=== PATIENT | male | born 1975 | race Caucasian/White ===

== ENCOUNTER 2017-12-29 10:40 | Emergency (ER) | payer BC, OTHER ==
[~2017-12-29] VITALS: Ht 185.4 cm; Wt 128.8 kg
[~2017-12-29 10:40] MED LIST: ASPEC81 PO; LRT5 PO; OMEG10007 PO; SIMV20TA2 PO; TAMAFLU
[2017-12-29 10:45] VITALS: TEMP 36.9; Ht 185.4 cm; Wt 128.8 kg
--- NOTE | 2017-12-29 11:31 | EMERGENCY ROOM VISIT NOTE ---
History Report prepared by Carol: Bailey Story Under the Supervision of: Dr. Stanislaw Albrecht M.D. First contact with patient: 10:57 Chief Complaint: FLANK PAIN Stated Complaint: ABDOMINAL PAIN Nursing Triage Summary: pt reports R flank pain X 36 hours [facility] and had + hematuria History of Present Illness The patient is a 42 year old male who presents to the Emergency Room with complaints of waxing and waning right-sided flank pain for the past 36 hours. The patient states that he woke up with this pain yesterday morning. He tried taking ibuprofen but did not have any relief of his symptoms. He went to [facility] today and had a negative x-ray. He had positive hematuria. The patient was sent to the ED for further evaluation of his symptoms. The patient' s pain radiates into his right groin and right testicle. He rates his pain as a 9/10 at the most severe. Certain movements exacerbate his pain while laying still helps to alleviate it. The patient denies any urinary symptoms. He does report that he was recently moving some heavy boxes, but states that is not unusual for him. He denies any recent trauma or injury to his back. The patient has a history of a DVT and is on Xarelto. 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 Review of Systems See HPI for pertinent positives & negatives. A total of 10 systems reviewed and were otherwise negative. Past Medical & Surgical Medical Problems: (1) DVT (deep venous thrombosis) (2) Hyperlipidemia (3) Unspecified asthma Family History FH: heart disease Social History Smoking Status: Never Smoker Occupation Status: employed Current/Historical Medications Scheduled Atorvastatin (Lipitor), 10 MG PO DAILY Rivaroxaban (Xarelto), 20 MG PO QPM Scheduled PRN Albuterol Sulfate (Proair Respiclick), 2 PUFF INH Q4 PRN for SOB/Wheezing Allergies Coded Allergies: Diltiazem (Verified Allergy, Intermediate, SITE REACTION WITH IV PUSH, ) Morphine (Unverified Allergy, Intermediate, RASH, 12/29/17) Calcium Channel Blockers (Unverified Allergy, Unknown, RASH AROUND IV SITE , 12/29/17) Physical Exam Vital Signs Date Time Temp Pulse Resp B/P (MAP) Pulse Ox O2 Delivery O2 Flow Rate FiO2 12/29/17 12:25 73 18 134/67 95 12/29/17 10:45 36.9 75 18 137/80 95 Room Air Physical Exam GENERAL: Patient is in no acute distress. HEENT: No acute trauma, normocephalic atraumatic, mucous membranes moist, no nasal congestion, no scleral icterus. NECK: No stridor, no adenopathy, no meningismus, trachea is midline. LUNGS: Clear to auscultation bilaterally, no wheeze, no rhonchi, breath sounds equal. HEART: Without murmurs gallops or rubs, regular rate and rhythm. ABDOMEN: Soft, nontender, bowel sounds positive, no hernias, no peritonitis. BACK: No midline bony discomfort or step-off, tender in the right lateral lumbar musculature, pain does worsen with movement. EXTREMITIES: No cyanosis or edema, full range of motion of all the joints without pain or difficulty, no signs for acute trauma. NEUROLOGIC: Oriented x 3, no acute motor or sensory deficits, no focal weakness. SKIN: No rash, no jaundice, no diaphoresis. Medical Decision & Procedures ER Provider Diagnostic Interpretation: Radiology results as stated below per my review and radiologist interpretation: ABD/PELVIS WITHOUT FOR STONE CT DOSE: 1939.87 mGy.cm HISTORY: Flank pain EVALUATE FLANK PAIN/HEMATURIA TECHNIQUE: Multiaxial CT images of the abdomen and pelvis were performed without the use of intravenous and oral contrast according to the standard department stone protocol. A dose lowering technique was utilized adhering to the principles of ALARA. COMPARISON STUDY: None. FINDINGS: The lung bases are clear. The unenhanced liver, gallbladder, spleen, pancreas, and adrenal glands are unremarkable. No renal stones or hydronephrosis. No bowel wall thickening or obstruction. The pelvic organs are unremarkable. No suspicious lytic or blastic osseous lesions. IMPRESSION: No renal stones or hydronephrosis. Negative abdomen and pelvis post appendectomy The above report was generated using voice recognition software. It may contain grammatical, syntax or spelling errors. Electronically signed by: Artie Angela M.D. 12/29/2017 11:47 AM Dictated Date/Time: 12/29/2017 11:42 AM Laboratory Results 12/29/17 11:10 12/29/17 11:10 Test 12/29/17 11:10 Red Blood Count 4.88 M/uL (4.7-6.1) Mean Corpuscular Volume 85.0 fL (80-100) Mean Corpuscular Hemoglobin 30.3 pg (25-34) Mean Corpuscular Hemoglobin Concent 35.7 g/dl (32-36) RDW Standard Deviation 37.7 fL (36.4-46.3) RDW Coefficient of Variation 12.3 % (11.5-14.5) Mean Platelet Volume 9.8 fL (7.4-10.4) Prothrombin Time 10.5 SECONDS (9.0-12.0) Prothromb Time International Ratio 1.0 (0.9-1.1) Activated Partial Thromboplast Time 26.8 SECONDS (21.0-31.0) Partial Thromboplastin Ratio 1.0 Urine Color YELLOW Urine Appearance CLEAR (CLEAR) Urine pH 5.0 (4.5-7.5) Urine Specific [place] 1.027 (1.000-1.030) Urine Protein NEG (NEG) Urine Glucose (UA) NEG (NEG) Urine Ketones NEG (NEG) Urine Occult Blood NEG (NEG) Urine Nitrite NEG (NEG) Urine Bilirubin NEG (NEG) Urine Urobilinogen NEG (NEG) Urine Leukocyte Esterase NEG (NEG) Anion Gap 5.0 mmol/L (3-11) Est Creatinine Clear Calc Drug Dose 138.1 ml/min Estimated GFR () 109.8 Estimated GFR (Non- 94.7 BUN/Creatinine Ratio 18.4 (10-20) Calcium Level 9.1 mg/dl (8.5-10.1) Total Bilirubin 1.2 mg/dl (0.2-1) Aspartate Amino Transf (AST/SGOT) 20 U/L (15-37) Alanine Aminotransferase (ALT/SGPT) 51 U/L (12-78) Alkaline Phosphatase 71 U/L (45-117) Total Protein 7.1 gm/dl (6.4-8.2) Albumin 4.3 gm/dl (3.4-5.0) Globulin 2.8 gm/dl (2.5-4.0) Albumin/Globulin Ratio 1.5 (0.9-2) Lipase 205 U/L (73-393) Laboratory results reviewed by me. ED Course 1057: The patient was evaluated in room C7. A complete history and physical exam was performed. 1206: I reassessed the patient at this time. He is feeling better and resting comfortably. I discussed the results and treatment plan with the patient. I answered all pertaining questions that he had. He expressed understanding and verbalized agreement. The patient will be discharged home. Medical Decision Differential diagnoses includes renal colic, UTI, nerve impingement, musculoskeletal pain, renal failure, hematoma. There is no leukocytosis or concerning anemia. No significant electrolyte abnormalities, kidney failure, hepatitis or pancreatitis. Urinalysis does not show infection or hematuria. Abdominal and pelvis CT does not show any hematoma , no bowel obstruction, no acute surgical process. There was no evidence for ureteral stone. The patient's pain does seem positional and is worse with certain movements. He has not required anything for pain while here in the ED. Based on his workup and exam, I suspect the pain is musculoskeletal. The patient will be discharged with [id number] pain medications, massage, heat and rest. If worsening, he can return. Medication Reconcilliation Current Medication List: was personally reviewed by me Blood Pressure Screening Patient's blood pressure: Elevated blood pressure Blood pressure disposition: Elevated BP felt to be situational Impression Primary Impression: Right flank pain Scribe Attestation The scribe's documentation has been prepared under my direction and personally reviewed by me in its entirety. I confirm that the note above accurately reflects all work, treatment, procedures, and medical decision making performed by me. Departure Information Dispostion Home / Self-Care Referrals [facility] (PCP) No Doctor, Assigned Forms HOME CARE DOCUMENTATION FORM, IMPORTANT VISIT INFORMATION Patient Instructions My [facility] Additional Instructions motrin and or tylenol for pain heat to the area will help massage may help avoid heavy lifting return if worsening CT scan and lab testing were all ok today
[2017-12-29 11:39] LABS: HEMATOCRIT 41.5 % (42-52); HEMOGLOBIN 14.8 g/dL (14.0-18.0); MEAN CORPUSCULAR HEMOGLOBIN 30.3 pg (25-34); MEAN CORPUSCULAR HGB CONC 35.7 g/dl (32-36); MEAN PLATELET VOLUME 9.8 fL (7.4-10.4); PLATELET COUNT 240 K/uL (130-400); RED CELL DISTRIBUTION WIDTH CV 12.3 % (11.5-14.5); RED CELL DISTRIBUTION WIDTH SD 37.7 fL (36.4-46.3)
--- NOTE | 2017-12-29 11:48 | DIAGNOSTIC IMAGING REPORT ---
ABD/PELVIS WITHOUT FOR STONE CT DOSE: 1939.87 mGy.cm HISTORY: Flank pain EVALUATE FLANK PAIN/HEMATURIA TECHNIQUE: Multiaxial CT images of the abdomen and pelvis were performed without the use of intravenous and oral contrast according to the standard department stone protocol. A dose lowering technique was utilized adhering to the principles of ALARA. COMPARISON STUDY: None. FINDINGS: The lung bases are clear. The unenhanced liver, gallbladder, spleen, pancreas, and adrenal glands are unremarkable. No renal stones or hydronephrosis. No bowel wall thickening or obstruction. The pelvic organs are unremarkable. No suspicious lytic or blastic osseous lesions. IMPRESSION: No renal stones or hydronephrosis. Negative abdomen and pelvis post appendectomy The above report was generated using voice recognition software. It may contain grammatical, syntax or spelling errors. Electronically signed by: Artie Angela M.D. 12/29/2017 11:47 AM Dictated Date/Time: 12/29/2017 11:42 AM
[2017-12-29 11:54] LABS: PTT PATIENT 26.8 SECONDS (21.0-31.0)
[2017-12-29 11:58] LABS: ALBUMIN 4.3 gm/dl (3.4-5.0); CALCIUM 9.1 mg/dl (8.5-10.1); CREATININE 0.98 mg/dl (0.60-1.40); POTASSIUM 3.8 mmol/L (3.5-5.1)
[2017-12-29 12:00] LABS: TOTAL PROTEIN 7.1 gm/dl (6.4-8.2)
[2017-12-29] MEDS ORDERED: ATOR10TA82 PO (12:21)
[2017-12-29] MEDS ORDERED: ALBU18002 INH (12:21)
[2017-12-29] MEDS ORDERED: RIVA1TAB4 PO (12:21)
[2017-12-29 12:25] VITALS: BP 134/67; PULSE 73; O2SAT 95
== END 2017-12-29 12:28 | disposition home or self-care (01) ==
LOC: C.EDB 10:41 → C.EDC 12:28
DX: R10.11 Right upper quadrant pain (principal); R10.31 Right lower quadrant pain; R31.9 Hematuria, unspecified; E78.5 Hyperlipidemia, unspecified; J45.909 Unspecified asthma, uncomplicated; Z86.718 Personal history of other venous thrombosis and embolism; Z79.01 Long term (current) use of anticoagulants; Z88.8 Allergy status to other drugs, medicaments and biological substances; Z88.6 Allergy status to analgesic agent

== ENCOUNTER → 2018-01-21 | Outpatient (CLI) | payer BC ==
[~2018-01-21] MED LIST changes: +ALBU18002 INH; -ASPEC81 PO; +ATOR10TA82 PO; -LRT5 PO; -OMEG10007 PO; +RIVA1TAB4 PO; -SIMV20TA2 PO; -TAMAFLU
--- NOTE | 2018-01-21 07:11 | DIAGNOSTIC IMAGING REPORT ---
ABDOMEN FOR HERNIA CLINICAL HISTORY: Right groin pain. COMPARISON STUDY: CT of the abdomen and pelvis the 2017. FINDINGS: There is a reducible fat-containing right inguinal hernia. IMPRESSION: Reducible fat-containing right inguinal hernia. Electronically signed by: Harpal Valadez M.D. 01/21/2018 7:10 AM Dictated Date/Time: 01/21/2018 7:07 AM
[2018-01-21 11:01] LABS: BASO % 0.5 %; BASO ABS # 0.04 K/uL (0-0.2); EOS % 1.8 %; EOS ABS # 0.15 K/uL (0-0.5); HEMATOCRIT 40.3 % (42-52); HEMOGLOBIN 14.5 g/dL (14.0-18.0); IG# 0.02 K/uL (0.00-0.02); LYMPH % 39.3 %; LYMPH ABS # 3.36 K/uL (1.2-3.4); MEAN CELL VOLUME 84.8 fL (80-100); MEAN CORPUSCULAR HEMOGLOBIN 30.5 pg (25-34); MEAN PLATELET VOLUME 9.9 fL (7.4-10.4); MONO % 9.3 %; NEUT % 48.9 %; NEUT ABS # 4.19 K/uL (1.4-6.5); PLATELET COUNT 238 K/uL (130-400); RED CELL DISTRIBUTION WIDTH CV 12.1 % (11.5-14.5); RED CELL DISTRIBUTION WIDTH SD 37.3 fL (36.4-46.3); WHITE BLOOD COUNT 8.56 K/uL (4.8-10.8)
[2018-01-21 11:29] LABS: ALT/SGPT 39 U/L (12-78); AST/SGOT 18 U/L (15-37); BLOOD UREA NITROGEN 17 mg/dl (7-18); CARBON DIOXIDE 23 mmol/L (21-32); CREATININE 1.02 mg/dl (0.60-1.40); GLUCOSE 106 mg/dl (70-99); SODIUM 138 mmol/L (136-145)
[2018-01-21 11:32] LABS: ALKALINE PHOSPHATASE 72 U/L (45-117); CHOLESTEROL 159 mg/dl (0-200); LDL CHOLESTEROL CALCULATED 98 mg/dl; TOTAL PROTEIN 6.7 gm/dl (6.4-8.2)
== END | disposition home or self-care (01) ==
LOC: C.ULTR 06:40
PROVIDERS: ATTEND Nurse Practitioner Adult Health
DX: K40.90 Unilateral inguinal hernia, without obstruction or gangrene, not specified as recurrent (principal); E78.5 Hyperlipidemia, unspecified; Z86.718 Personal history of other venous thrombosis and embolism

== ENCOUNTER → 2018-02-02 | Outpatient (CLI) | payer BC ==
[~2018-02-02] MED LIST changes: +CETI10TA84 PO; +OXYC-57 PO
[2018-02-02 12:56] LABS: HEMOGLOBIN A1C 5.5 % (4.5-5.6)
== END | disposition home or self-care (01) ==
LOC: C.CPL 10:22
PROVIDERS: ATTEND Nurse Practitioner Adult Health
DX: K40.90 Unilateral inguinal hernia, without obstruction or gangrene, not specified as recurrent (principal); R73.9 Hyperglycemia, unspecified

== ENCOUNTER → 2018-02-07 | Day surgery (SDC) | payer BC ==
[2018-02-03 15:01] VITALS: Ht 185.4 cm; Wt 118.2 kg
[~2018-02-07] VITALS: Ht 185.4 cm; Wt 118.2 kg
[~2018-02-07] MED LIST changes: +ATROPINE SULFATE 0.1 MG/ML 5ML SYR IV PRN; +BUPIVACAINE 0.5 % 5 MG/1 ML MPF 30ML VIAL ONE; +CEFAZOLIN 2000MG IV PUSH 15 ML IV SCH; +DEXAMETHASONE SOD INJ 4 MG/ML VIAL ONE; +EpHEDrine SULFATE INJ 50 MG/ML AMP IV PRN; +FENTANYL CITRATE INJ 50 MCG/1 ML 2 ML VIAL ONE; +GLYCOPYRROLATE INJ 0.2 MG/ML VIAL ONE; +HYDROmorphone INJ 2 MG/ML SYR/VIAL IV PRN; +LABETALOL HCL IV 5 MG/ML 20ML IV PRN; +LACTATED RINGER'S 1000ML 1,000 ML IV SCH; +LARYING-O-JET KIT (LTA) ONE; +LIDOCAINE HCL 2% 2 ML VIAL (20MG/ML) ONE; +MEPERIDINE HCL 25 MG/ML CARP IV PRN; +MIDAZOLAM HCL 1 MG/ML 2ML VIAL ONE; +NEOSTIGMINE METHYLSULFATE 5 MG/5 ML SYR ONE; +ONDANSETRON INJ 2 MG/ML 2 ML VIAL IV PRN; +ONDANSETRON INJ 2 MG/ML 2 ML VIAL ONE; +OXYCODONE/ACETAMINOPHEN 5-325 TAB ONE; +OXYCODONE/ACETAMINOPHEN 5-325 TAB PO PRN; +PHENYLEPHRINE 100MCG/ML 5ML SYR IV PRN; +PROMETHAZINE HCL INJ 12.5 MG in SODIUM CHLORIDE 0.9% 50ML 50 ML IV PRN; +PROPOFOL IV EMULSION 10 MG/ML 20 ML VIAL IV ONE
[2018-02-07 05:37] VITALS: BP 113/71; PULSE 73; TEMP 36.6; O2SAT 97
--- NOTE | 2018-02-07 06:51 | History & Physical Bridge Note ---
H&P Re-Evaluation Bridge Note: I have examined the patient, reviewed the History & Physical and in the interval since the performance of the History & Physical I have noted the following changes of clinical significance: No changes noted
--- NOTE | 2018-02-07 08:21 | [facility] Post Operative Brief Note ---
Immediate Operative Summary Operative Date Feb 07, 2018. Pre-Operative Diagnosis Recurrent inguinal hernia of right side without obstruction or gangrene Post-Operative Diagnosis Recurrent inguinal hernia of right side without obstruction or gangrene Procedure(s) Performed Laparoscopic Recurrent Right Inguinal Hernia Repair with Mesh Surgeon Dr. Arnold Braun Sane Nurse Surgeon(s) To Fine PA-C Estimated Blood Loss 4 mL Findings Consistent with Post-Op Diagnosis Small direct defect and small recurrent indirect Specimens No pathology specimens per surgeon Drains None Anesthesia Type General Complication(s) none Disposition Accompanied Pt To Recover: no Disposition: Recovery Room / PACU
--- NOTE | 2018-02-07 08:26 | [facility] Operative Report ---
Operative Report Operative Date Feb 07, 2018. Pre-Operative Diagnosis Recurrent inguinal hernia of right side without obstruction or gangrene Post-Operative Diagnosis Recurrent right inguinal hernia with direct and indirect defects Procedure(s) Performed Laparoscopic recurrent right inguinal hernia repair with mesh Surgeon Dr. Arnold Braun Machine Operator Helper Surgeon(s) To Fine PA-C Estimated Blood Loss 4 mL Findings Evidence of prior high ligation with small recurrent indirect hernia which was reduced. Direct defect with preperitoneal fat herniating through. No inguinal hernia on the left, pro-certified art therapist mesh placed on the right Specimens No pathology specimens per surgeon Drains None Anesthesia General Complication(s) None Disposition Recovery Room / PACU Indications 42-year-old male with prior right inguinal hernia repair as a child now with recurrent right inguinal hernia, plan for laparoscopic right inguinal hernia, possible left. The risks of the procedure were discussed, all questions were answered, and the patient agreed to proceed with surgery as planned. Description of Procedure The patient was properly identified, consented, and taken to the operating room where he was placed in the supine position. General endotracheal anesthesia was induced. SCDs and a safety belt were placed. A platt catheter was placed. Preoperative antibiotics were administered. The patient's groins and abdomen were prepped and draped in the standard sterile fashion. Surgical timeout was performed and all parties were in agreement that this was the correct patient and procedure to be performed and we continued as planned. A transverse infraumbilical incision was made to the left of midline with electrocautery and deepened down to the fascia with blunt dissection. A transverse incision was made in the anterior rectus sheath on the left. The rectus muscle was pulled laterally exposing the posterior rectus sheath. A large Deborah was used to bluntly dissect the preperitoneal space down to the pubic symphysis. This was then replaced with a laparoscopic preperitoneal dissection balloon, which was inflated under direct visualization and held in place for approximately 30 seconds. This was then removed and the preperitoneal space was insufflated with carbon dioxide which the patient tolerated without incident. Two 5 mm ports were then placed in the midline. Dissection started on the right, beginning laterally at the anterior superior iliac spine. Rodrick's ligament was then dissected medially. The cord structures were circumferentially dissected. Small amount of scarring from his prior inguinal hernia repair in his prior open appendectomy. There is evidence of prior high ligation of his right inguinal hernia. A small recurrent indirect hernia was noted, as well as a direct defect with preperitoneal fat. It was dissected away from the cord structures. The contralateral side was then dissected in a similar manner, and no hernia was noted. Progrip mesh was placed on the right and covered the direct, indirect, and femoral spaces. The mesh was held in place, the ports were removed, and the space was allowed to collapse. The anterior rectus sheath fascia was closed with 3-0 Vicryl suture. The skin of all port sites were closed with 4-0 Monocryl subcuticular suture, and Dermabond was placed over the incisions. The patient was extubated in the operating room and taken to the PACU for recovery without apparent incident. Any air in the scrotum was reduced, and the testicles were confirmed to be in the scrotum. All sponge, instrument, and needle counts were correct at the conclusion of the procedure. The patient tolerated the procedure well. The physician's bar assistant was present and scrubbed for the entire to the procedure. He was essential in positioning the patient, prepping and draping, retraction and exposure, driving the laparoscope, placement of the mesh, closure , and placement of the dressings. I attest to the content of the Intraoperative Record and any orders documented therein. Any exceptions are noted below.
--- NOTE | 2018-02-07 08:37 | Discharge Instructions ---
Discharge Instructions Date of Service Feb 07, 2018. Visit Reason for Visit: Right Inguinal Hernia Discharge Discharge Diagnosis / Problem: inguinal hernia repair Discharge Goals Goal(s): Decrease discomfort Activity Recommendations Activity Limitations: as noted below Lifting Limitations: no more than 10 pounds Shower/Bathe: no limitations Driving or Machine Use: when pain free Anesthesia . Post Anesthesia Instructions: If you have had General Anesthesia or IV Sedation: * Do not drive today. * Resume driving when surgeon permits. * Do not make important decisions or sign legal documents today. * Call surgeon for: 1. Temperature elevations greater than 101 degrees F. 2. Uncontrollable pain. 3. Excessive bleeding. 4. Persistent nausea and vomiting. 5. Medication intolerance (nausea, vomiting or rash). * For nausea and vomiting use only clear liquids such as: tea, soda, bouillon until nausea subsides, then gradually increase diet as tolerated. * If you have any concerns or questions, call your surgeon's office. If physician is unavailable and it is an emergency, call 911 or go to the nearest emergency room. . Instructions / Follow-Up Instructions / Follow-Up Dr. Braun in 1-2 weeks as planned, call [phone] for any questions Restart Xarelto tomorrow Diet Recommendations Recommended Home Diet: no limitations Procedures Procedures Performed: Laparoscopic Recurrent Right Inguinal Hernia Repair with Mesh Pending Studies Studies pending at discharge: no Medical Emergencies . Who to Call and When: Medical Emergencies: If at any time you feel your situation is an emergency, please call 911 immediately. . Non-Emergent Contact Non-Emergency issues call your: Surgeon Call Non-Emergent contact if: you have a fever, temperature is above 101.5, your pain is not controlled, you have any medication questions . . "Provider Documentation" section prepared by To Fine. .
[2018-02-07] MEDS: FENTANYL CITRATE INJ 50 MCG/1 ML 2 ML VIAL IV PRN ×2 (08:45→08:50)
[2018-02-07 09:15] VITALS: BP 114/68; PULSE 66; O2SAT 94
--- NOTE | 2018-02-07 09:22 | Anesthesiology Progress Note ---
Anesthesia Post Op Note Date & Time Feb 07, 2018 at 09:22 Vital Signs Pain Intensity: 2 Vital Signs Past 12 Hours Date Time Temp Pulse Resp B/P (MAP) Pulse Ox O2 Delivery O2 Flow Rate FiO2 02/07/18 09:00 36.4 62 16 129/69 95 Room Air 02/07/18 08:50 57 16 115/69 98 Oxymask 7 02/07/18 08:40 64 16 125/76 99 Oxymask 7 02/07/18 08:30 36.4 61 16 129/77 97 Oxymask 7 02/07/18 05:37 36.6 73 18 113/71 (85) 97 Room Air Notes Mental Status: alert / awake / arousable, participated in evaluation Pt Amnestic to Procedure: Yes Nausea / Vomiting: adequately controlled Pain: adequately controlled Airway Patency, RR, SpO2: stable & adequate BP & HR: stable & adequate Hydration State: stable & adequate Anesthetic Complications: no major complications apparent
[2018-02-07 09:45] VITALS: BP 116/65; PULSE 64; O2SAT 94
[2018-02-07 10:15] VITALS: BP 124/69; PULSE 72; TEMP 36.6; O2SAT 95
== END | disposition home or self-care (01) ==
LOC: C.ACU 04:49
PROVIDERS: ATTEND Surgery
DX: K40.91 Unilateral inguinal hernia, without obstruction or gangrene, recurrent (principal); J45.909 Unspecified asthma, uncomplicated; G47.33 Obstructive sleep apnea (adult) (pediatric); I48.91 Unspecified atrial fibrillation; E78.5 Hyperlipidemia, unspecified; E66.9 Obesity, unspecified; Z88.6 Allergy status to analgesic agent; Z68.34 Body mass index [BMI] 34.0-34.9, adult; Z86.718 Personal history of other venous thrombosis and embolism; Z90.89 Acquired absence of other organs; Z79.899 Other long term (current) drug therapy; Z79.01 Long term (current) use of anticoagulants; Z82.49 Family history of ischemic heart disease and other diseases of the circulatory system